=== PATIENT | male | born 1940 | race Caucasian/White ===

== ENCOUNTER → 2017-02-20 | Outpatient (CLI) | payer OTHER | END | disposition home or self-care (01) | LOC: PCVCCLINIC 10:20 | PROVIDERS: ATTEND Internal Medicine | DX: I48.0 Paroxysmal atrial fibrillation (principal); I42.9 Cardiomyopathy, unspecified; I10 Essential (primary) hypertension; I49.01 Ventricular fibrillation; Z95.810 Presence of automatic (implantable) cardiac defibrillator; Z85.46 Personal history of malignant neoplasm of prostate; Z79.82 Long term (current) use of aspirin; Z87.891 Personal history of nicotine dependence | CPT/HCPCS: 93005; G0463 ==

== ENCOUNTER → 2017-05-04 | Outpatient (CLI) | payer OTHER | END | disposition home or self-care (01) | LOC: PCVCCLINIC 11:17 | PROVIDERS: ATTEND Internal Medicine | DX: I48.0 Paroxysmal atrial fibrillation (principal); I10 Essential (primary) hypertension; I49.01 Ventricular fibrillation; Z95.810 Presence of automatic (implantable) cardiac defibrillator; Z87.891 Personal history of nicotine dependence | CPT/HCPCS: 93283 ==

== ENCOUNTER → 2017-08-17 | Outpatient (CLI) | payer OTHER | END | disposition home or self-care (01) | LOC: PCVCIMAG 13:20 | DX: I08.1 Rheumatic disorders of both mitral and tricuspid valves (principal); I48.0 Paroxysmal atrial fibrillation; I42.8 Other cardiomyopathies; I10 Essential (primary) hypertension; E78.5 Hyperlipidemia, unspecified; I46.9 Cardiac arrest, cause unspecified; I49.01 Ventricular fibrillation; Z95.810 Presence of automatic (implantable) cardiac defibrillator; Z87.891 Personal history of nicotine dependence; Z79.82 Long term (current) use of aspirin | CPT/HCPCS: 80061; 93005; 93306; G0463 ==

== ENCOUNTER → 2017-11-20 | Outpatient (CLI) | payer OTHER | END | disposition home or self-care (01) | LOC: PCVCCLINIC 12:54 | DX: I48.0 Paroxysmal atrial fibrillation (principal); I42.8 Other cardiomyopathies; I49.01 Ventricular fibrillation; E78.5 Hyperlipidemia, unspecified; I10 Essential (primary) hypertension; Z95.810 Presence of automatic (implantable) cardiac defibrillator | CPT/HCPCS: 93283 ==

== ENCOUNTER → 2018-02-12 | Outpatient (CLI) | payer OTHER | END | disposition home or self-care (01) | LOC: PCVCCLINIC 10:52 | DX: I48.0 Paroxysmal atrial fibrillation (principal); I42.8 Other cardiomyopathies; I10 Essential (primary) hypertension; E78.5 Hyperlipidemia, unspecified; I46.9 Cardiac arrest, cause unspecified; I49.01 Ventricular fibrillation; R94.31 Abnormal electrocardiogram [ECG] [EKG]; Z95.810 Presence of automatic (implantable) cardiac defibrillator; Z88.8 Allergy status to other drugs, medicaments and biological substances; Z87.891 Personal history of nicotine dependence; Z79.82 Long term (current) use of aspirin; Z79.899 Other long term (current) drug therapy | CPT/HCPCS: 80061; 93005; G0463 ==

== ENCOUNTER → 2018-03-19 | Outpatient (CLI) | payer OTHER | END | disposition home or self-care (01) | LOC: PCVCCLINIC 10:49 | PROVIDERS: ATTEND Internal Medicine | DX: Z48.812 Encounter for surgical aftercare following surgery on the circulatory system (principal); Z95.810 Presence of automatic (implantable) cardiac defibrillator | CPT/HCPCS: 93283 ==

== ENCOUNTER → 2018-04-23 | Outpatient (CLI) | payer OTHER | END | disposition home or self-care (01) | LOC: PCVCCLINIC 09:25 | PROVIDERS: ATTEND Internal Medicine Cardiovascular Disease | DX: Z48.812 Encounter for surgical aftercare following surgery on the circulatory system (principal); Z95.810 Presence of automatic (implantable) cardiac defibrillator | CPT/HCPCS: 93283 ==

== ENCOUNTER → 2018-06-07 | Outpatient (CLI) | payer OTHER | END | disposition home or self-care (01) | LOC: PCVCCLINIC 11:07 | PROVIDERS: ATTEND Internal Medicine | DX: Z48.812 Encounter for surgical aftercare following surgery on the circulatory system (principal); Z95.810 Presence of automatic (implantable) cardiac defibrillator | CPT/HCPCS: 93283 ==

== ENCOUNTER → 2018-07-12 | Outpatient (CLI) | payer OTHER | END | disposition home or self-care (01) | LOC: PCVCCLINIC 10:16 | PROVIDERS: ATTEND Internal Medicine Cardiovascular Disease | DX: Z48.812 Encounter for surgical aftercare following surgery on the circulatory system (principal); Z95.810 Presence of automatic (implantable) cardiac defibrillator | CPT/HCPCS: 93284 ==

== ENCOUNTER → 2018-08-20 | Outpatient (CLI) | payer OTHER ==
--- NOTE | 2018-08-20 12:44 | PCVCIMAG ---
APPROVED REPORT Study performed: 08/20/2018 11:28:49 EXAM: Comprehensive 2D, Doppler, and color-flow Echocardiogram Patient Location: Echo lab Room #: 2Status: routine BSA: 2.01 HR: 60 bpmBP: 120/70 mmHg Rhythm: NSR Other Information Study Quality: Good Risk Factors: Cardiac Risk Factors: H: out of hospital cardiac arrest Indications Cardiomyopathy ICD defibrillator 2D Dimensions IVSd: 10.92 (7-11mm)LVOT Diam: 22.97 (18-24mm) LVDd: 42.50 mm PWd: 8.76 (7-11mm)Ascending Ao: 37.12 (22-36mm) LVDs: 31.98 (25-40mm) Left Atrium: 30.94 (27-40mm) Aortic Root: 32.39 mm LV Single Plane 4CH: 58.97 % LV Single Plane 2CH: 60.54 % Biplane EF: 59.1 % Volumes Left Atrial Volume (Systole) Single Plane 4CH: 56.49 mLSingle Plane 2CH: 59.07 mL Biplane LA Volume: 61.00 mLLA ESV Index: 31.00 mL/m2 Aortic Valve AoV Peak Grzegorz.: 1.38 m/s AO Peak Gr.: 7.67 mmHgLVOT Max P.76 mmHg LVOT Max V: 0.97 m/s VICKY Vmax: 2.90 cm2 Mitral Valve E/A Ratio: 0.8 MV Decel. Time: 222.54 ms MV E Max Grzegorz.: 0.57 m/s MV A Grzegorz.: 0.68 m/s IVRT: 119.38 ms Pulmonary Valve PV Peak Grzegorz.: 0.81 m/sPV Peak Gr.: 2.62 mmHg Tricuspid Valve TR Peak Grzegorz.: 2.28 m/s TR Peak Gr.: 20.88 mmHg TV Vmax: 0.68 m/sPA Pressure: 28.00 mmHg Left Ventricle The left ventricle is normal size. There is normal LV segmental wall motion. Borderline concentric left ventricular hypertrophy. Left ventricular systolic function is normal. The left ventricular ejection fraction is within the normal range. LVEF is 55-60%. Mild diastolic dysfunction is present (impaired relaxation pattern). Right Ventricle The right ventricle is normal size. The right ventricular systolic function is normal. Atria The left atrium size is normal. Pacemaker lead is present in the right atrium. Aortic Valve Aortic valve is trileaflet, mildly sclerotic. No aortic regurgitation is present. There is no aortic valvular stenosis. Mitral Valve The mitral valve is normal in structure. Mild mitral valve regurgitation No evidence of mitral valve stenosis. Tricuspid Valve The tricuspid valve is normal in structure. Mild tricuspid regurgitation with a PA pressure of 28 mmHg. No apparent pulmonary hypertension. Pulmonic Valve The pulmonary valve is normal in structure. There is no pulmonic valvular regurgitation. Great Vessels The aortic root is normal in size. The ascending aorta is normal in size. Aortic arch is normal in caliber. IVC is normal in size and collapses >50% with inspiration. Pericardium There is no pericardial effusion. There is no pleural effusion. <Conclusion> Left ventricular systolic function is normal. There is normal LV segmental wall motion. LVEF is 55-60%. Mild diastolic dysfunction Aortic valve is trileaflet, mildly sclerotic. No aortic regurgitation or stenosis The mitral valve is normal in structure. Mild mitral valve regurgitation Mild tricuspid regurgitation with a pulmonary artery pressure of 28 mmHg. There is no pericardial effusion.
== END | disposition home or self-care (01) ==
LOC: PCVCIMAG 13:00
PROVIDERS: ATTEND Internal Medicine
DX: I08.1 Rheumatic disorders of both mitral and tricuspid valves (principal); I48.0 Paroxysmal atrial fibrillation; I46.9 Cardiac arrest, cause unspecified; I49.01 Ventricular fibrillation; I10 Essential (primary) hypertension; I45.81 Long QT syndrome; I42.8 Other cardiomyopathies
CPT/HCPCS: 93306

== ENCOUNTER → 2019-02-11 | Outpatient (CLI) | payer OTHER | END | disposition home or self-care (01) | LOC: PCVCCLINIC 11:00 | PROVIDERS: ATTEND Internal Medicine | DX: I42.8 Other cardiomyopathies (principal); I48.0 Paroxysmal atrial fibrillation; I10 Essential (primary) hypertension; E78.5 Hyperlipidemia, unspecified; I46.9 Cardiac arrest, cause unspecified; I49.01 Ventricular fibrillation; R61 Generalized hyperhidrosis; Z95.810 Presence of automatic (implantable) cardiac defibrillator; Z88.8 Allergy status to other drugs, medicaments and biological substances | CPT/HCPCS: 36415; 80061; 93005; 93283; G0463 ==